=== PATIENT | male | born 1945 | race African-American/Black ===

== ENCOUNTER 2024-05-09 10:31 | Observation (INO) ==
[2024-05-09 11:24] LABS: Basophils%(Percent) Auto 0.7 (0.0-1.3); Eosinophils#(Absolute)Auto 0.1 (0.0-0.3); Eosinophils%(Percent) Auto 2.8 % (0.0-4.0); Granulocytes#(Absolute)- Auto 3.1 (2.0-6.2); Mean Corpuscular Volume 83.6 fl (81.9-96.5); Monocytes #(Absolute)- Auto 0.5 (0.2-0.8); Monocytes %(Percent)- Auto 12.2 % (4.5-10.7); Platelet Count 178 K/uL (142-355); White Blood Count 4.5 K/uL (3.7-9.6)
--- NOTE | 2024-05-09 11:35 | Emergency Department Note ---
HPI - Fall General Chief Complaint: Fall Stated Complaint: fell Time Seen by Provider: 05/09/24 10:41 Source: patient Mode of arrival: walk-in Limitations: no limitations History of Present Illness MD complaint: Reports fall Onset (ago): day(s) (2) Fall from: Reports standing Fall witnessed: Reports no Place fall occurred: Reports home Loss of consciousness: none Prolonged down time: Reports no Symptoms prior to fall: Reports none Context: Reports tripped/slipped Location of injury: Reports head, face and eyes Severity: moderate Quality: Reports aching and throbbing Associated symptoms (after fall): Reports headache, weakness and other (Wounds to lower legs, bilateral lower extremities are tight and shiny) Related Data Allergies Allergy/AdvReac Type Severity Reaction Status Date / Time No Known Drug Allergies Allergy Verified 05/09/24 10:57 Review of Systems Status of ROS 10 or more systems reviewed and unremark able except as noted in history and below Constitutional Reports: fatigue; Denies: fever, chills, change in weight, malaise, night sweats or change in sleep pattern Eyes Denies: change in vision, blurry vision, blind spots, light sensitivity, eye discomfort, eye discharge, dry eyes, increased production of tears, floaters, seeing flashes or decreased night vision Ears, nose, mouth, and throat Denies: throat pain, neck pain, throat swelling, difficulty swallowing, hoarseness, mouth pain, swelling of lips/tongue, dry mouth, bad breath, ear pain, ear discharge, change in hearing, tinnitus, vertig o, nasal discharge, nasal congestion, nose bleeds or post nasal drip Cardiovascular Reports: edema, swelling of feet/ankles, shortness of breath with exertion, shortness of breath when lying down and leg pain with exertion; Denies: chest pain, palpitations, lightheadedness or bluish discoloration of hands/feet Respiratory Reports: shortness of breath; Denies: cough, wheezing, stridor, pain on inspiration, change in phlegm color, coughing up blood or chest congestion Gastrointestinal Denies: abdominal pain, nausea, vomiting, coffee grounds in vomit, heartburn, diarrhea, constipation, bloating, belching, excessive passing of gas, difficulty swallowing, feeling full early, change in bowel habits, painful bowel movements, rectal pain, rectal swelling, rectal itching, change in stool character, blood in stool, mucus in stool, white/light colored stool or fatty stool Genitourinary Denies: painful urination, urinary frequency, urinary urgency, blood in urine, genital pain, genital lesion, penile discharge, testicular pain, testicular mass, scrotal swelling, difficulty urinating, nighttime urination, change in urine stream, decreased urine ouput, difficulty starting urination, urinary hesitancy, urinary dribbling, difficulty with ejactulations, painful ejaculations, blood in semen, change in libido or difficulty impregnating Musculoskeletal Reports: back pain, extremity pain and extremity swelling; Denies: neck pain, joint pain, limited range of motion, joint swelling, muscle cramps, muscle weakness or loss of height Integumentary/Breast Denies: rash, itching, redness, skin pain, skin tenderness, skin swelling, sores, new lesion, changing lesion, non-healing lesion, changes in skin color, jaundice, stretch trevino, acne, nail changes, change in hair, breast pain, breast swelling, nipple discharge, breast mass, breast skin changes or change in breast shape Neurological Reports: weakness in extremities; Denies: headache, numbness in extremities, lack of coordination, dizziness, vertigo, confusion, behavioral changes, slurred speech, difficulty communicating thoughts, seizure-like activity or involuntary movements Psychiatric Reports: anxiety; Denies: mood swings, panic attacks, change in sleep pattern, hopelessness, loss of interest, irritability, paranoia, memory loss, difficulty concentrating, visual hallucinations, auditory hallucinations, tactile hallucinations, suicidal ideation or homicidal ideation Endocrine Reports: fatigue; Denies: excessive urination, excessive thirst, cold intolerance, excessive sweating, flushing, heat intolerance, deepening of the voice, change in body appearance or change in libido Hematologic/Lymphatic Denies: easy bruising, easy bleeding or enlarged lymph nodes Allergic/Immunologic Denies: hives, throat swelling, tongue swelling, facial swelling, wheezing, itchy eyes, seasonal allergies or food intolerance [facility] Medical History Diabetes HLD (hyperlipidemia) Coronary artery disease Surgical History History of back surgery Hx of bilateral hip replacements H/O heart artery stent Social History (System 12/28/23 @ 16:03 by Vidhi Chen [facility]) Smoking status: never smoker Problems where you live: no known problems Feel stressed/tense/nervous/anxious/difficulty sleeping: to some extent Life stressor details: Current medical condition. Due to disability, difficulty making decisions: No Exam Constitutional: normal general appearance, distress noted (moderate), average body habitus, limitations noted (physical limitations) (Patient is weak and has frequent falls) and alert Vital Signs - 24 hr 05/09/24 10:53 05/09/24 11:30 05/09/24 12:30 Temperature 97.8 F Pulse Rate 77 68 64 Respiratory Rate 18 18 16 Blood Pressure 110/54 101/53 104/59 Pulse Oximetry 98 98 97 Oxygen Delivery Me thod Room Air Room Air Room Air 05/09/24 13:30 05/09/24 14:30 Temperature Pulse Rate 61 68 Respiratory Rate 16 17 Blood Pressure 106/55 103/61 Pulse Oximetry 97 97 Oxygen Delivery Me thod Room Air Room Air HENMT: normocephalic, head/scalp traumatic (Patient has a proximately 2 cm laceration to the left eyebrow that has seal) (tenderness), (contusion) and (laceration), hearing grossly normal bilaterally, external ears normal, EACs normal, TMs normal bilaterally, nasal mucous membranes normal, external nose normal, oral mucous membranes normal, oropharynx normal, dentition normal and gingiva normal Patient has a 2 cm laceration to left eyebrow area that has sealed on its own and is not able to be sutured at this time, There is no noted deformity of the nasal area; however, there is noted tenderness on palpation. Eyes: PERRL, EOMs intact bilaterally, conjunctivae normal, no scleral icterus, no papilledema, normal visual drew by confrontation, alignment normal, periorbital findings normal and no nystagmus Neck/C-Spine: visual inspection normal, trachea midline, cervical spine nontender, cervical full ROM noted and supple Lymph: no lymphadenopathy noted and no lymphedema noted Chest: inspection of chest normal, palpation of chest normal, inspection of breast(s) abnormal and palpation of breast(s) abnormal Respiratory: breath sounds equal bilaterally, normal respiratory effort, clear to auscultation bilaterally, no wheezes, no rales, no retractions and no use of accessory muscles Cardiovascular: normal heart rate noted, regular rhythm noted, no gallop, no r ub, no murmur, no JVD, no clicks, peripheral pulses 2+ throughout and no additional abnormal heart sounds Gastrointestinal: abdomen normal to inspection, abdomen soft to palpation, nontender to palpation, nondistended, normoactive bowel sounds, no hepatosplenomegaly, no masses, no pulsatile mass, no ascites and normal rectal exam (deferred) Genitourinary: no CVA tenderness, bladder normal to palpation, penis abnormal (deferred), uncircumcised, testes abnormal, meatus abnormal (deferred), scrotum abnormal (deferred) and inguinal lymphadenopathy noted Back/Pelvis: spine normal to inspection, no thoracic spine tenderness, no lumbar spine tenderness, thoracic spine ROM normal, lumbar spine ROM normal and no paraspinal muscle tenderness noted Extremities: normal to inspection, normal to palpation, tenderness noted, full ROM, no joint enlargement and no deformity Patient's lower extremities are tight and shiny to palpation with several noted skin tear open areas that are reported to be draining fluid and that the patient had to have wound care for the last time he developed this type of wound. Patient does report increased pain on palpation. 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 Feel stressed/tense/nervous/anxious/difficulty sleeping: to some extent Life stressor details: Current medical condition. Skin: skin color normal, no rash, no lesions, no ecchymosis noted, no wounds, no lacerations, skin turgor normal, no jaundice, no petechiae, no mottling, nails normal and no alopecia Course Course Hospital Course: 79-year-old male that presented to ER with complaint of bilateral lower leg edema with small wounds, left-sided periorbital laceration is 2 cm's in length, and recent falls has been evaluated by physical exam, CBC, CMP, BNP, troponin, EKG, plain film chest x-ray, CT of the brain without contrast, and CT of the facial bones without contrast results as noted in charting. Patient has been found to have peripheral edema with BNP elevation, Hypoalbuminemia, acute on chronic renal failure, and leg ulceration. Patient will be admitted to the [facility] floor for diuresis, albumin infusion, and ongoing assessment of renal function. Patient expected length of stay is equal to or less than 2 midnights with disposition home. Patient and family agree with treatment plan. Vital Signs Vital signs: Vital Signs Temperature 97.8 F 05/09/24 10:53 Pulse Rate 77 05/09/24 10:53 Respiratory Rate 18 05/09/24 10:53 Blood Pressure 110/54 05/09/24 10:53 Pulse Oximetry 98 05/09/24 10:53 Oxygen Delivery Method Room Air 05/09/24 10:53 Temperature 97.8 F 05/09/24 10:53 Pulse Rate 68 05/09/24 14:30 Respiratory Rate 17 05/09/24 14:30 Blood Pressure 103/61 05/09/24 14:30 Pulse Oximetry 97 05/09/24 14:30 Oxygen Delivery Method Room Air 05/09/24 14:30 MDM - Fall MDM Narrative Medical decision making narrative: Medical decision making this patient about physical exam, CBC, CMP, troponin, BNP, urinalysis, EKG, and plain film chest x-ray as well as CT of the maxillofacial bones and the brain without contrast. Differential Diagnosis Differential diagnosis: Likely syncope, concussion without loss of consciousness and other (Orbital fracture, laceration, nasal fracture, peripheral edema, CKD, CHF exacerbation) Medical Records Attestation: I reviewed the patient's medical records. Lab Data Attestation: I reviewed the patient's lab results. Labs: Lab Results 05/09/24 Range/Units 11:15 WBC 4.5 (3.7-9.6) K/uL RBC 4.4 (4.40-5.80) M/uL Hgb 11.5 L (14.0-17.4) gm/dL Hct 37.0 L (41.3-50.1) % MCV 83.6 (81.9-96.5) fl MCH 26.1 L (27.6-33.7) pg MCHC 31.2 L (33.0-35.7) g/dl RDW 17.8 H (11.0-14.8) % Plt Count 178 (142-355) K/uL MPV 7.9 (6.0-10.4) fl Gran % 68.0 (49.1-73.1) % Lymph % (Auto) 16.3 L (17.6-39.05) % [place] % (Auto) 12.2 H (4.5-10.7) % Eos % (Auto) 2.8 (0.0-4.0) % Baso % (Auto) 0.7 (0.0-1.3) Lymph # (Auto) 0.7 L (0.8-2.9) [place] # (Auto) 0.5 (0.2-0.8) Eos # (Auto) 0.1 (0.0-0.3) Baso # (Auto) 0.0 (0.0-0.1) Absolute Gran (auto) 3.1 (2.0-6.2) Sodium 144 (136-145) mmol/L Potassium 4.4 (3.6-5.2) mmol/L Chloride 107.0 (98-107) mmol/L Carbon Dioxide 31 (21-32) mmol/L Anion Gap 6.0 (4-14) mEq/L BUN 41 H (7-18) mg/dL Creatinine 1.8 H (0.6-1.3) mg/dL Estimated GFR 37.4 (>59.9) Glucose 113 H (70-110) mg/dL Calcium 8.3 L (8.5-10.1) mg/dL Total Bilirubin 0.79 (0.0-1.0) mg/dL AST 33 (15-37) U/L ALT 40 (30-65) U/L Alkaline Phosphatase 104 (50-136) U/L B-Natriuretic Peptide 614.0 H (0-100) pg/mL Total Protein 6.3 L (6.4-8.2) g/dL Albumin 2.9 L (3.4-5.0) g/dL Imaging Data Imaging ordered: Chest x-ray, CT scan - head and other (CT scan of face bones) Attestation: I have reviewed the pertinent imaging results. Radiologist's impression: EXAM: XR CHEST 1V HISTORY: dyspneadyspnea; COMPARISON: March 07, 2022 FINDINGS: The trachea is midline. The cardiac silhouette is mildly enlarged. The lungs are clear without focal infiltrate or effusion. The bony thorax is unremarkable. IMPRESSION: No acute cardiopulmonary disease. THIS IS AN ELECTRONICALLY VERIFIED FINAL REPORT 05/09/2024 1:51 PM - Electronically signed by Antonia Weber MD EXAM: CT head without contrast HISTORY: Fall, head injury TECHNIQUE: Axial noncontrast images with coronal and sagittal reformats. Dose reduction procedures were used with mA/kv adjusted for body size. COMPARISON: 11/02/2023 FINDINGS: The ventricles are normal in size shape and position. There is mild cortical atrophy present likely age related. There are no focal areas of abnormal attenuation to suggest recent or remote CVA, hemorrhage, contusion, mass lesion, or extra-axial fluid collection. Visualized sinuses are clear. The calvarium is intact. Redemonstrated are multiple partially calcified soft tissue masses within the right orbit demonstrating some mass effect on the extraocular musculature and optic nerve and contributing to proptosis. These findings were present on prior examinations 09/05/2023 and 11/02/2023 and do not appear to have significantly progressed. Recommend careful historical correlation and MRI of the orbits and ophthalmological consultation if not previously obtained. IMPRESSION: No acute intracranial abnormality identified Mild cortical atrophy likely age-related Multiple abnormal and some partially calcified right retro-orbital soft tissue masses contributing to mild proptosis. By history this has been present since 2017. Close historical correlation is recommended. If this finding has not been evaluated, MRI with and without contrast would be of further diagnostic value as would ophthalmology consultation. THIS IS AN ELECTRONICALLY VERIFIED FINAL REPORT 05/09/2024 11:49 AM - Electronically signed by Paul Asif MD EXAMINATION: CT FACIAL BONES WO CON HISTORY: fallfall; . COMPARISON STUDY: CT brain 09/04/2022 05/09/2024. TECHNIQUE: Multiple thin section axial images were obtained through the facial bones without IV administration of contrast. Coronal reformatted images were obtained. The above CT scan was done with automated exposure control and the mA and kV was adjusted to obtain quality images according to patient size. FINDINGS: Nondisplaced nondepressed fracture of the right nasal bone.. Sinuses demonstrate chronic right maxillary sinusitis.. Orbits are intact. Surroundings soft tissues are unremarkable. Globes and retroorbital structures are intact. Zygomas, TMJs and mandible are intact. No osteolytic or osteoblastic lesions are noted. 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 This is previously described as 2 separate lesions. Differential diagnosis would include lymphoma, sarcoid, pseudotumor or neurogenic tumors. Consider ophthalmology evaluation. Globes and retro-orbital structures are otherwise intact. There is adjacent calcification. Karla bullosa within the middle turbinates bilaterally. IMPRESSION: Nondisplaced nondepressed posttraumatic closed fracture of the right nasal bone. Excessive motion and streak artifact. 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 Differential diagnosis would include lymphoma, sarcoid, orbital pseudotumor or neurogenic tumors. Consider ophthalmologic evaluation.. THIS IS AN ELECTRONICALLY VERIFIED FINAL REPORT 05/09/2024 11:54 AM - Electronically signed by Tim Huff MD ECG Data Attestation: I have reviewed the pertinent ECG results. Interpretation: Sinus rhythm rate 75 Normal P axis PVCs Anterior infarct, old RR 800 NM 193 P axis 49 QRS 126 T 17 Discharge Plan Discharge Patient Disposition: Admitted As Observation Condition: Stable Chief Complaint: Fall Clinical Impression: Acute on chronic kidney failure, Hypoalbuminemia, Laceration, Edema, peripheral Print Language: Maltese Referrals: Praveena Limon NP [Primary Care Provider] - Time of Disposition: 13:10
[2024-05-09 11:37] LABS: Potassium 4.4 mmol/L (3.6-5.2)
[2024-05-09] MEDS ORDERED: ACETAMINOPHEN 1000 MG/100 ML 1,000 MG/100 ML IV.SOLN IV PRN (16:00)
[2024-05-09] MEDS ORDERED: ONDANSETRON HCL/PF 4 MG/2 ML VIAL INJ PRN (16:00)
[2024-05-09] MEDS ORDERED: bisacodyL 10 MG SUPP.RECT PR PRN (16:00)
[2024-05-09] MEDS ORDERED: MAGNESIUM, ALUMINUM HYDROXIDE 30 ML ORAL.SUSP PO PRN (16:00)
[2024-05-09] MEDS ORDERED: MORPHINE SULFATE 2 MG/ML CARTRIDGE IV PRN (16:00)
[2024-05-09] MEDS ORDERED: KETOROLAC 30 MG/ML INJ VIAL IVP PRN (16:00)
[2024-05-09] MEDS: 0.9 % SODIUM CHLORIDE 1000 ML 1,000 ML IV SCH (16:07)
[2024-05-09] MEDS: ALBUMIN HUMAN 25% 100 ML IV SCH (16:07)
--- NOTE | 2024-05-09 16:47 | History & Physical Report ---
H&P: HPI History of Present Illness Chief complaint: Acute chronic kidney injury, hypoalbuminemia Narrative: 79-year-old male that presented to ER with complaint of bilateral lower leg edema with small wounds, left-sided periorbital laceration is 2 cm's in length, and recent falls has been evaluated by physical exam, CBC, CMP, BNP, troponin, EKG, plain film chest x-ray, CT of the brain without contrast, and CT of the facial bones without contrast results as noted in charting. Patient has been found to have peripheral edema with BNP elevation, Hypoalbuminemia, acute on chronic renal failure, and leg ulceration. Patient will be admitted to the [facility] floor for diuresis, albumin infusion, and ongoing assessment of renal function. Review of Systems Status of ROS 10 or more systems reviewed and unremark able except as noted in history and below Constitutional Reports: fatigue; Denies: fever, chills, change in weight, malaise, night sweats or change in sleep pattern Eyes Denies: change in vision, blurry vision, blind spots, light sensitivity, eye discomfort, eye discharge, dry eyes, increased production of tears, floaters, seeing flashes or decreased night vision Ears, nose, mouth, and throat Denies: throat pain, neck pain, throat swelling, difficulty swallowing, hoarseness, mouth pain, swelling of lips/tongue, dry mouth, bad breath, ear pain, ear discharge, change in hearing, tinnitus, vertigo, nasal discharge, nasal congestion, nose bleeds or post nasal drip Cardiovascular Reports: edema, swelling of feet/ankles, shortness of breath with exertion, shortness of breath when lying down and leg pain with exertion; Denies: chest pain, palpitations, lightheadedness or bluish discoloration of hands/feet Respiratory Reports: shortness of breath; Denies: cough, wheezing, stridor, pain on inspiration, change in phlegm color, coughing up blood or chest congestion Gastrointestinal Denies: abdominal pain, nausea, vomiting, coffee grounds in vomit, heartburn, diarrhea, constipation, bloating, belching, excessive passing of gas, difficulty swallowing, feeling full early, change in bowel habits, painful bowel movements, rectal pain, rectal swelling, rectal itching, change in stool character, blood in stool, mucus in stool, white/light colored stool or fatty stool Genitourinary Denies: painful urination, urinary frequency, urinary urgency, blood in urine, genital pain, genital lesion, penile discharge, testicular pain, testicular mass, scrotal swelling, difficulty urinating, nighttime urination, change in urine stream, decreased urine ouput, difficulty starting urination, urinary hesitancy, urinary dribbling, difficulty with ejactulations, painful ejaculations, blood in semen, change in libido or difficulty impregnating Musculoskeletal Reports: back pain, extremity pain and extremity swelling; Denies: neck pain, joint pain, limited range of motion, joint swelling, muscle cramps, muscle weakness or loss of height Integumentary/Breast Denies: rash, itching, redness, skin pain, skin tenderness, skin swelling, sores, new lesion, changing lesion, non-healing lesion, changes in skin color, jaundice, stretch trevino, acne, nail changes, change in hair, breast pain, breast swelling, nipple discharge, breast mass, breast skin changes or change in breast shape Neurological Reports: weakness in extremities; Denies: headache, numbness in extremities, lack of coordination, dizziness, vertigo, confusion, behavioral changes, slurred speech, difficulty communicating thoughts, seizure-like activity or involuntary movements Psychiatric Reports: anxiety; Denies: mood swings, panic attacks, change in sleep pattern, hopelessness, loss of interest, irritability, paranoia, memory loss, difficulty concentrating, visual hallucinations, auditory hallucinations, tactile hallucinations, suicidal ideation or homicidal ideation Endocrine Reports: fatigue; Denies: excessive urination, excessive thirst, cold intolerance, excessive sweating, flushing, heat intolerance, deepening of the voice, change in body appearance or change in libido Hematologic/Lymphatic Denies: easy bruising, easy bleeding or enlarged lymph nodes Allergic/Immunologic Denies: hives, throat swelling, tongue swelling, facial swelling, wheezing, itchy eyes, seasonal allergies or food intolerance PFSH PFS Medical History (Updated 05/09/24 @ 16:44 by BRYANT Hirsch) Diabetes HLD (hyperlipidemia) Coronary artery disease Surgical History History of back surgery Hx of bilateral hip replacements H/O heart artery stent Social History Smoking status: never smoker Problems where you live: no known problems Feel stressed/tense/nervous/anxious/difficulty sleeping: to some extent Life stressor details: Current medical condition. Due to disability, difficulty making decisions: No Meds Home Medications and Allergies Allergies Allergy/AdvReac Type Severity Reaction Status Date / Time No Known Drug Allergies Allergy Verified 05/09/24 10:57 Exam Exam: Patient in stock's position. Constitutional: normal general appearance, distress noted (moderate), average body habitus, limitations noted (physical limitations) (Patient is weak and has frequent falls) and alert Vital Signs - 24 hr 05/09/24 10:53 05/09/24 11:30 05/09/24 12:30 Temperature 97.8 F Pulse Rate 77 68 64 Respiratory Rate 18 18 16 Blood Pressure 110/54 101/53 104/59 Pulse Oximetry 98 98 97 Oxygen Delivery Me thod Room Air Room Air Room Air 05/09/24 13:30 05/09/24 14:30 05/09/24 15:30 Temperature Pulse Rate 61 68 68 Respiratory Rate 16 17 17 Blood Pressure 106/55 103/61 108/55 Pulse Oximetry 97 97 97 Oxygen Delivery Me thod Room Air Room Air Room Air 05/09/24 16:00 Temperature Pulse Rate 66 Respiratory Rate 17 Blood Pressure 104/55 Pulse Oximetry 97 Oxygen Delivery Me thod Room Air HENMT: normocephalic, head/scalp traumatic (Patient has a proximately 2 cm laceration to the left eyebrow that has seal) (tenderness), (contusion) and (laceration), hearing grossly normal bilaterally, external ears normal, EACs normal, TMs normal bilaterally, nasal mucous membranes normal, external nose normal, oral mucous membranes normal, oropharynx normal, dentition normal and gingiva normal Patient has a 2 cm laceration to left eyebrow area that has sealed on its own and is not able to be sutured at this time, There is no noted deformity of the nasal area; however, there is noted tenderness on palpation. Eyes: PERRL, EOMs intact bilaterally, conjunctivae normal, no scleral icterus, no papilledema, normal visual drew by confrontation, fundi normal bilaterally, alignment normal, periorbital findings normal, visual acuity normal and no nystagmus Neck/C-Spine: visual inspection normal, trachea midline, cervical spine nontender, cervical full ROM noted, supple, no meningeal signs, thyroid normal and no carotid bruits Lymph: no lymphadenopathy noted and no lymphedema noted Chest: inspection of chest normal, palpation of chest normal, inspection of breast(s) abnormal and palpation of breast(s) abnormal Respiratory: breath sounds equal bilaterally, normal respiratory effort, clear to auscultation bilaterally, no wheezes, no rales, no retractions, no use of accessory muscles and chest percussion normal Cardiovascular: normal heart rate noted, regular rhythm noted, no gallop, no rub, no murmur, no JVD, no clicks, peripheral pulses 2+ throughout, no bruits noted and no additional abnormal heart sounds Gastrointestinal: abdomen normal to inspection, abdomen soft to palpation, nontender to palpation, nontender to percussion, nondistended, normoactive bowel sounds, no hepatosplenomegaly, no masses, no pulsatile mass, no ascites, no hernia and normal rectal exam (deferred) Genitourinary: no CVA tenderness, bladder normal to palpation, external appearance normal, penis abnormal (deferred), uncircumcised, testes abnormal, meatus abnormal (deferred), scrotum abnormal (deferred) and inguinal lymphadenopathy noted Back/Pelvis: spine normal to inspection, no thoracic spine tenderness, no lumbar spine tenderness, thoracic spine ROM normal, lumbar spine ROM normal, no paraspinal muscle tenderness noted and straight leg raise negative bilaterally Extremities: normal to inspection, normal to palpation, tenderness noted, full ROM, no joint enlargement and no deformity Patient's lower extremities are tight and shiny to palpation with several noted skin tear open areas that are reported to be draining fluid and that the patient had to have wound care for the last time he developed this type of wound. Patient does report increased pain on palpation. Neurology: edge trimmer mechanic II-XII intact, no movement abnormality noted, no focal motor deficit noted, no sensory deficits noted, deep tendon reflexes 2+ bilaterally, gait abnormality noted (unable to access), speech normal, coordination normal, no pronator drift noted, no fasciculations noted and GCS normal Psychiatry: Mental Status Exam documented within this Exam's Psych section mental status grossly normal, oriented x3, thought process normal, cooperative, affect normal, psychomotor activity normal and memory normal Patient is alert and oriented to his normal state, family reports patient has had several falls related to unsteady gait and weakness. Skin: skin color normal, no rash, no lesions, no ecchymosis noted, no wounds, no lacerations, skin turgor normal, no jaundice, no petechiae, no mottling, nails normal and no alopecia Assessment and Plan Assessment and Plan (1) Fall: Qualifiers: Encounter type: initial encounter Qualified Code(s): W19.XXXA - Unspecified fall, initial encounter Code(s): W19.XXXA - Unspecified fall, initial encounter (2) Muscle weakness (generalized): Code(s): M62.81 - Muscle weakness (generalized) (3) Headache: Qualifiers: Headache type: post-traumatic Headache chronicity pattern: acute headache Intractability: intractable Qualified Code(s): G44.311 - Acute post- traumatic headache, intractable Code(s): R51.9 - Headache, unspecified (4) Hypoalbuminemia: Code(s): E88.09 - Other disorders of plasma-protein metabolism, not elsewhere classified (5) SOB (shortness of breath): Code(s): R06.02 - Shortness of breath (6) Back pain: Qualifiers: Back pain location: back pain in unspecified location Chronicity: acute Back pain laterality: bilateral Qualified Code(s): M54.9 - Dorsalgia, unspecified Code(s): M54.9 - Dorsalgia, unspecified (7) Lower extremity pain, bilateral: Code(s): M79.604 - Pain in right leg; M79.605 - Pain in left leg (8) Lower extremity edema: Code(s): R60.0 - Localized edema (9) Anemia: Qualifiers: Anemia type: unspecified type Qualified Code(s): D64.9 - Anemia, unspecified Code(s): D64.9 - Anemia, unspecified (10) Hypocalcemia: Code(s): E83.51 - Hypocalcemia (11) Hypoproteinemia: Code(s): E77.8 - Other disorders of glycoprotein metabolism (12) [id number]-[id number] kidney injury: Qualifiers: Acute renal failure type: unspecified Chronic kidney disease stage: unspecified stage Qualified Code(s): N17.9 - Acute kidney failure, unspecified; N18.9 - Chronic kidney disease, unspecified Code(s): N17.9 - Acute kidney failure, unspecified; N18.9 - Chronic kidney disease, unspecified (13) Anxiety: Code(s): F41.9 - Anxiety disorder, unspecified (14) Diabetes: Qualifiers: Diabetes mellitus type: type 2 Diabetes mellitus care home insulin use: unspecified care home insulin use status Diabetes mellitus complication status: with hyperglycemia Qualified Code(s): E11.65 - Type 2 diabetes mellitus with hyperglycemia Code(s): E11.9 - Type 2 diabetes mellitus without complications Plan Sodium Chloride 1,000 mls @ 50 mls/hr IV CONT Albumin 100 mls @ 60 mls/hr IV Q2H Bumetanide 1 mg IVP BID Magnesium Hydroxide 30 ml PO DAILY PRN Bisacodyl 10 mg TX DAILY PRN Ketorolac Tromethamine 15 mg IVP Q6H PRN Morphine Sulfate 2 mg IV Q4H PRN Ondansetron Hcl 4 mg INJ Q6H PRN Acetaminophen 1,000 mg in 100 mls @ 400 mls/hr IV Q6H PRN Results Labs Labs: CBC 05/09/24 11:15 WBC 4.5 RBC 4.4 Hgb 11.5 L Hct 37.0 L MCV 83.6 MCH 26.1 L MCHC 31.2 L RDW 17.8 H Plt Count 178 MPV 7.9 Gran % 68.0 Lymph % (Auto) 16.3 L Hyde % (Auto) 12.2 H Eos % (Auto) 2.8 Baso % (Auto) 0.7 Lymph # (Auto) 0.7 L Hyde # (Auto) 0.5 Eos # (Auto) 0.1 Baso # (Auto) 0.0 Absolute Gran (auto) 3.1 Sodium 144 Potassium 4.4 Chloride 107.0 Carbon Dioxide 31 Anion Gap 6.0 BUN 41 H Creatinine 1.8 H Estimated GFR 37.4 Glucose 113 H Calcium 8.3 L Total Bilirubin 0.79 AST 33 ALT 40 Alkaline Phosphatase 104 B-Natriuretic Peptide 614.0 H Total Protein 6.3 L Albumin 2.9 L BMP 05/09/24 11:15 WBC 4.5 RBC 4.4 Hgb 11.5 L Hct 37.0 L MCV 83.6 MCH 26.1 L MCHC 31.2 L RDW 17.8 H Plt Count 178 MPV 7.9 Gran % 68.0 Lymph % (Auto) 16.3 L Hyde % (Auto) 12.2 H Eos % (Auto) 2.8 Baso % (Auto) 0.7 Lymph # (Auto) 0.7 L Hyde # (Auto) 0.5 Eos # (Auto) 0.1 Baso # (Auto) 0.0 Absolute Gran (auto) 3.1 Sodium 144 Potassium 4.4 Chloride 107.0 Carbon Dioxide 31 Anion Gap 6.0 BUN 41 H Creatinine 1.8 H Estimated GFR 37.4 Glucose 113 H Calcium 8.3 L Total Bilirubin 0.79 AST 33 ALT 40 Alkaline Phosphatase 104 B-Natriuretic Peptide 614.0 H Total Protein 6.3 L Albumin 2.9 L Cardiac Enzymes 05/09/24 11:15 WBC 4.5 RBC 4.4 Hgb 11.5 L Hct 37.0 L MCV 83.6 MCH 26.1 L MCHC 31.2 L RDW 17.8 H Plt Count 178 MPV 7.9 Gran % 68.0 Lymph % (Auto) 16.3 L Hyde % (Auto) 12.2 H Eos % (Auto) 2.8 Baso % (Auto) 0.7 Lymph # (Auto) 0.7 L Hyde # (Auto) 0.5 Eos # (Auto) 0.1 Baso # (Auto) 0.0 Absolute Gran (auto) 3.1 Sodium 144 Potassium 4.4 Chloride 107.0 Carbon Dioxide 31 Anion Gap 6.0 BUN 41 H Creatinine 1.8 H Estimated GFR 37.4 Glucose 113 H Calcium 8.3 L Total Bilirubin 0.79 AST 33 ALT 40 Alkaline Phosphatase 104 B-Natriuretic Peptide 614.0 H Total Protein 6.3 L Albumin 2.9 L Liver Function 05/09/24 11:15 WBC 4.5 RBC 4.4 Hgb 11.5 L Hct 37.0 L MCV 83.6 MCH 26.1 L MCHC 31.2 L RDW 17.8 H Plt Count 178 MPV 7.9 Gran % 68.0 Lymph % (Auto) 16.3 L Hyde % (Auto) 12.2 H Eos % (Auto) 2.8 Baso % (Auto) 0.7 Lymph # (Auto) 0.7 L Hyde # (Auto) 0.5 Eos # (Auto) 0.1 Baso # (Auto) 0.0 Absolute Gran (auto) 3.1 Sodium 144 Potassium 4.4 Chloride 107.0 Carbon Dioxide 31 Anion Gap 6.0 BUN 41 H Creatinine 1.8 H Estimated GFR 37.4 Glucose 113 H Calcium 8.3 L Total Bilirubin 0.79 AST 33 ALT 40 Alkaline Phosphatase 104 B-Natriuretic Peptide 614.0 H Total Protein 6.3 L Albumin 2.9 L Urine 05/09/24 11:15 WBC 4.5 RBC 4.4 Hgb 11.5 L Hct 37.0 L MCV 83.6 MCH 26.1 L MCHC 31.2 L RDW 17.8 H Plt Count 178 MPV 7.9 Gran % 68.0 Lymph % (Auto) 16.3 L Hyde % (Auto) 12.2 H Eos % (Auto) 2.8 Baso % (Auto) 0.7 Lymph # (Auto) 0.7 L Hyde # (Auto) 0.5 Eos # (Auto) 0.1 Baso # (Auto) 0.0 Absolute Gran (auto) 3.1 Sodium 144 Potassium 4.4 Chloride 107.0 Carbon Dioxide 31 Anion Gap 6.0 BUN 41 H Creatinine 1.8 H Estimated GFR 37.4 Glucose 113 H Calcium 8.3 L Total Bilirubin 0.79 AST 33 ALT 40 Alkaline Phosphatase 104 B-Natriuretic Peptide 614.0 H Total Protein 6.3 L Albumin 2.9 L Imaging Imaging ordered: Chest x-ray, CT scan - head and other (Face CT; Thyroid US) Radiologist's impression: XR CHEST 1V Date of Service: 05/09/24 HISTORY: dyspnea; COMPARISON: March 07, 2022 FINDINGS: The trachea is midline. The cardiac silhouette is mildly enlarged. The lungs are clear without focal infiltrate or effusion. The bony thorax is unremarkable. IMPRESSION: No acute cardiopulmonary disease. CT head without contrast Date of Service: 05/09/24 HISTORY: Fall, head injury TECHNIQUE: Axial noncontrast images with coronal and sagittal reformats. Dose reduction procedures were used with mA/kv adjusted for body size. COMPARISON: 11/02/2023 FINDINGS: The ventricles are normal in size shape and position. There is mild cortical atrophy present likely age related. There are no focal areas of abnormal attenuation to suggest recent or remote CVA, hemorrhage, contusion, mass lesion, or extra-axial fluid collection. Visualized sinuses are clear. The calvarium is intact. Redemonstrated are multiple partially calcified soft tissue masses within the right orbit demonstrating some mass effect on the extraocular musculature and optic nerve and contributing to proptosis. These findings were present on prior examinations 09/05/2023 and 11/02/2023 and do not appear to have significantly progressed. Recommend careful historical correlation and MRI of the orbits and ophthalmological consultation if not previously obtained. IMPRESSION: No acute intracranial abnormality identified Mild cortical atrophy likely age-related Multiple abnormal and some partially calcified right retro-orbital soft tissue masses contributing to mild proptosis. By history this has been present since 2017. Close historical correlation is recommended. If this finding has not been evaluated, MRI with and without contrast would be of further diagnostic value as would ophthalmology consultation. CT FACIAL BONES WO CON Date of Service: 05/09/24 HISTORY: fall; . COMPARISON STUDY: CT brain 09/04/2022 05/09/2024. TECHNIQUE: Multiple thin section axial images were obtained through the facial bones without IV administration of contrast. Coronal reformatted images were ob tained. The above CT scan was done with automated exposure control and the mA and kV was adjusted to obtain quality images according to patient size. FINDINGS: Nondisplaced nondepressed fracture of the right nasal bone.. Sinuses demonstrate chronic right maxillary sinusitis.. Orbits are intact. Surroundings soft tissues are unremarkable. Globes and retroorbital structures are intact. Zygomas, TMJs and mandible are intact. No osteolytic or osteoblastic lesions are noted. 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 This is previously described as 2 separate lesions. Differential diagnosis would include lymphoma, sarcoid, pseudotumor or neurogenic tumors. Consider ophthalmology evaluation. Globes and retro-orbital structures are otherwise intact. There is adjacent calcification. Karla bullosa within the middle turbinates bilaterally. IMPRESSION: Nondisplaced nondepressed posttraumatic closed fracture of the right nasal bone. Excessive motion and streak artifact. 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 Differential diagnosis would include lymphoma, sarcoid, orbital pseudotumor or neurogenic tumors. Consider ophthalmologic evaluation.. US THYROID Date of Service: 05/09/24 HISTORY: elevated tshelevated tsh; COMPARISON: Chest CT 10/24/2023 TECHNIQUE: 54 images made by the postmaster. Mcgraw scale and color-flow images of the thyroid were obtained. FINDINGS: Right lobe of the thyroid measures 57 x 16 x 19 mm. Left lobe of the thyroid measures 58 x 17 x 22 mm. Isthmus measures 4 mm. Thyroid volume is about 20 mL. The thyroid is normal in size. Upper limit normal volume for men is 9-25 mL. The contour is smooth. Normal blood flow is demonstrated by color imaging. The echogenicity is uniform. 1 small nodule measures about 3 mm in the right lobe. This does not meet size criteria for further evaluation. The technologist did not report any suspicious surrounding lymphadenopathy. IMPRESSION: 1. Small right thyroid nodule 2. No suspicious findings
[2024-05-09] MEDS: BUMETANIDE 1 MG/4 ML VIAL IVP SCH (21:01)
[2024-05-10 05:20] LABS: Basophils%(Percent) Auto 1.1 (0.0-1.3); Eosinophils#(Absolute)Auto 0.1 (0.0-0.3); Eosinophils%(Percent) Auto 3.2 % (0.0-4.0); Granulocytes % - Auto 65.1 % (49.1-73.1); Granulocytes#(Absolute)- Auto 2.8 (2.0-6.2); Hematocrit 34.5 % (41.3-50.1); Mean Corpuscular Volume 82.5 fl (81.9-96.5); Monocytes #(Absolute)- Auto 0.5 (0.2-0.8); Monocytes %(Percent)- Auto 11.6 % (4.5-10.7); Platelet Count 179 K/uL (142-355); White Blood Count 4.4 K/uL (3.7-9.6)
[2024-05-10 06:09] LABS: Potassium 3.6 mmol/L (3.6-5.2)
[2024-05-10] MEDS: PANTOPRAZOLE SODIUM 40 MG TABLET.DR PO SCH (09:53)
[2024-05-10] MEDS: MAGNESIUM OXIDE 400 MG TABLET PO ONE (09:55)
[2024-05-10] MEDS: MAGNESIUM OXIDE 400 MG TABLET ONE (09:56)
[2024-05-10 10:39] LABS: Urine Appearance CLEAR (CLEAR); Urine Blood NEGATIVE (NEG - TRACE); Urine Color YELLOW (STRAW/YELL.); Urine Urobilinogen Normal (NORMAL)
--- NOTE | 2024-05-10 16:12 | Progress Note ---
Progress Note: Subjective Subjective Interval history: Day two of hospital stay, patient reports he did not sleep well last night, as he did not have his Xanax as he normally does. Patient had a previous fall with a laceration above left eyebrow and a nasal fracture. Thyroid US performed on 05/09/24 Impression reflects the following: "1: Small right thyroid nodule, 2: No suspicious findings." Lab work reflects the following: elevated BUN & Creatinine, hypocalcemia 7.8, hypomagnesemia 1.6, elevated BN-Peptide 452.0, hypoproteinemia 5.9, and hypoalbuminemia 2.8. Physical Therapy and Occupational Therapy to evaluate and treat as needed. Exam Exam: Patient in stock's position. Constitutional: abnormal general appearance (disheveled) and (chronically ill), distress noted (mild), abnormal body habitus (overweight), limitations noted (physical limitations) (Patient is weak and has frequent falls) and alert Vital Signs - 24 hr 05/09/24 15:44 05/09/24 16:00 05/09/24 16:39 Temperature 98.3 F Pulse Rate 66 66 Pulse Rate [Left] 83 Respiratory Rate 20 17 17 Blood Pressure 104/55 104/55 Blood Pressure [Le ft Arm] 133/61 Pulse Oximetry 96 97 97 Oxygen Delivery Me od Room Air Room Air 05/09/24 19:59 05/09/24 21:01 05/09/24 23:39 Temperature 97.6 F 98.2 F Pulse Rate Pulse Rate [Left] 86 86 Respiratory Rate 17 16 Blood Pressure 106/58 Blood Pressure [Le ft Arm] 106/58 104/63 Pulse Oximetry 97 95 [facility] 05/09/24 23:52 05/10/24 03:30 05/10/24 08:00 Temperature 97.9 F 98.3 F Pulse Rate Pulse Rate [Left] 64 91 H Respiratory Rate 18 19 Blood Pressure 104/63 Blood Pressure [Le ft Arm] 98/49 121/58 Pulse Oximetry 95 98 [facility] Room Air 05/10/24 09:53 05/10/24 10:59 05/10/24 12:00 Temperature 99.3 F Pulse Rate Pulse Rate [Left] 95 H Respiratory Rate 19 Blood Pressure 121/58 110/64 Blood Pressure [Le ft Arm] 124/65 Pulse Oximetry 97 Oxygen Delivery Me thod Room Air HENMT: normocephalic, head/scalp traumatic (Patient has a proximately 2 cm laceration to the left eyebrow that has seal) (tenderness), (contusion) and (laceration), hearing grossly normal bilaterally, external ears normal, EACs normal, TMs normal bilaterally, nasal mucous membranes normal, external nose normal, oral mucous membranes normal, oropharynx normal, dentition normal and gingiva normal Patient has a 2 cm laceration to left eyebrow area that has sealed on its own and is not able to be sutured at this time, There is no noted deformity of the nasal area; however, there is noted tenderness on palpation. Eyes: PERRL, EOMs intact bilaterally, conjunctivae normal, no scleral icterus, no papilledema, normal visual drew by confrontation, fundi normal bilaterally, alignment normal, periorbital findings normal, visual acuity normal and no nystagmus Neck/C-Spine: visual inspection normal, trachea midline, cervical spine nontender, cervical full ROM noted, supple, no meningeal signs, thyroid normal and no carotid bruits Lymph: no lymphadenopathy noted and no lymphedema noted Chest: inspection of chest normal, palpation of chest normal, inspection of breast(s) abnormal and palpation of breast(s) abnormal Respiratory: breath sounds equal bilaterally, normal respiratory effort, clear to auscultation bilaterally, no wheezes, no rales, no retractions, no use of accessory muscles and chest percussion normal Cardiovascular: normal heart rate noted, regular rhythm noted, no gallop, no rub, no murmur, no JVD, no clicks, peripheral pulses 2+ throughout, no bruits noted and no additional abnormal heart sounds Gastrointestinal: abdomen normal to inspection, abdomen soft to palpation, nontender to palpation, nontender to percussion, nondistended, normoactive bowel sounds, no hepatosplenomegaly, no masses, no pulsatile mass, no ascites, no hernia and normal rectal exam (deferred) Genitourinary: no CVA tenderness, bladder normal to palpation, external appearance normal, penis normal, testes normal, scrotum normal (deferred) and no inguinal lymphadenopathy Back/Pelvis: spine normal to inspection, no thoracic spine tenderness, no lumbar spine tenderness, thoracic spine ROM normal, lumbar spine ROM normal, no paraspinal muscle tenderness noted and straight leg raise negative bilaterally Extremities: normal to inspection, normal to palpation, tenderness noted, full ROM, no joint enlargement and no deformity Patient's lower extremities are tight and shiny to palpation with several noted skin tear open areas that are reported to be draining fluid and that the patient had to have wound care for the last time he developed this type of wound. Patient does report increased pain on palpation. Neurology: quality assurance monitor final II-XII intact, no movement abnormality noted, no focal motor deficit noted, sensory deficit noted, deep tendon reflexes 2+ bilaterally, gait abnormality noted (unable to access), speech normal, coordination abnormality noted, no pronator drift noted, no fasciculations noted and GCS normal Psychiatry: Mental Status Exam documented within this Exam's Psych section mental status grossly normal, oriented x3, thought process abnormality noted, cooperative, affect normal, psychomotor abnormality noted (restless) and memory normal Patient is alert and oriented to his normal state, family reports patient has had several falls related to unsteady gait and weakness. Feel stressed/tense/nervous/anxious/difficulty sleeping: not at all Skin: skin color normal, no rash, no lesions, no ecchymosis noted, no wounds, no lacerations, skin turgor abnormal Reports (tenting), no jaundice, no pe techiae, no mottling, nails normal and no alopecia Progress Note: Objective Labs Labs: CBC 05/10/24 Range/Units 04:50 WBC 4.4 (3.7-9.6) K/uL RBC 4.2 L (4.40-5.80) M/uL Hgb 11.3 L (14.0-17.4) gm/dL Hct 34.5 L (41.3-50.1) % Plt Count 179 (142-355) K/uL Gran % 65.1 (49.1-73.1) % Lymph % (Auto) 19.0 (17.6-39.05) % [place] % (Auto) 11.6 H (4.5-10.7) % Eos % (Auto) 3.2 (0.0-4.0) % Baso % (Auto) 1.1 (0.0-1.3) Lymph # (Auto) 0.8 (0.8-2.9) [place] # (Auto) 0.5 (0.2-0.8) Eos # (Auto) 0.1 (0.0-0.3) Baso # (Auto) 0.0 (0.0-0.1) Absolute Gran (auto) 2.8 (2.0-6.2) CMP 05/10/24 04:50 Sodium 143 Potassium 3.6 Chloride 106.0 Carbon Dioxide 31 BUN 32 H Creatinine 1.5 H Glucose 121 H Calcium 7.8 L Liver Function 05/10/24 Range/Units 04:50 Total Bilirubin 0.79 (0.0-1.0) mg/dL AST 28 (15-37) U/L ALT 33 (30-65) U/L Alkaline Phosphatase 98 (50-136) U/L Albumin 2.8 L (3.4-5.0) g/dL Urine 05/10/24 09:51 Urine Color Yellow Urine Appearance Clear Ur Specific [place] 1.010 Urine Protein Negative Urine Glucose (UA) 1+ Imaging Chest x-ray: Radiologist's impression: XR CHEST 1V Date of Service: 05/09/24 HISTORY: dyspnea; COMPARISON: March 07, 2022 FINDINGS: The trachea is midline. The cardiac silhouette is mildly enlarged. The lungs are clear without focal infiltrate or effusion. The bony thorax is unremarkable. IMPRESSION: No acute cardiopulmonary disease. CT scan - head: Radiologist's impression: CT head without contrast Date of Service: 05/09/24 HISTORY: Fall, head injury TECHNIQUE: Axial noncontrast images with coronal and sagittal reformats. Dose reduction procedures were used with mA/kv adjusted for body size. COMPARISON: 11/02/2023 FINDINGS: The ventricles are normal in size shape and position. There is mild cortical atrophy present likely age related. There are no focal areas of abnormal attenuation to suggest recent or remote CVA, hemorrhage, contusion, mass lesion, or extra-axial fluid collection. Visualized sinuses are clear. The calvarium is intact. Redemonstrated are multiple partially calcified soft tissue masses within the right orbit demonstrating some mass effect on the extraocular musculature and optic nerve and contributing to proptosis. These findings were present on prior examinations 09/05/2023 and 11/02/2023 and do not appear to have significantly progressed. Recommend careful historical correlation and MRI of the orbits and ophthalmological consultation if not previously obtained. IMPRESSION: No acute intracranial abnormality identified Mild cortical atrophy likely age-related Multiple abnormal and some partially calcified right retro-orbital soft tissue masses contributing to mild proptosis. By history this has been present since 2017. Close historical correlation is recommended. If this finding has not been evaluated, MRI with and without contrast would be of further diagnostic value as would ophthalmology consultation. Face CT: Radiologist's impression: CT FACIAL BONES WO CON Date of Service: 05/09/24 HISTORY: fall; . COMPARISON STUDY: CT brain 09/04/2022 05/09/2024. TECHNIQUE: Multiple thin section axial images were obtained through the facial bones without IV administration of contrast. Coronal reformatted images were obtained. The above CT scan was done with automated exposure control and the mA and kV was adjusted to obtain quality images according to patient size. FINDINGS: Nondisplaced nondepressed fracture of the right nasal bone.. Sinuses demonstrate chronic right maxillary sinusitis.. Orbits are intact. Surroundings soft tissues are unremarkable. Globes and retroorbital structures are intact. Zygomas, TMJs and mandible are intact. No osteolytic or osteoblastic lesions are noted. 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 This is previously described as 2 separate lesions. Differential diagnosis would include lymphoma, sarcoid, pseudotumor or neurogenic tumors. Consider ophthalmology evaluation. Globes and retro-orbital structures are otherwise intact. There is adjacent calcification. Karla bullosa within the middle turbinates bilaterally. IMPRESSION: Nondisplaced nondepressed posttraumatic closed fracture of the right nasal bone. Excessive motion and streak artifact. 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 Differential diagnosis would include lymphoma, sarcoid, orbital pseudotumor or neurogenic tumors. Consider ophthalmologic evaluation.. Thyroid US: Radiologist's impression: US THYROID Date of Service: 05/09/24 HISTORY: elevated tsh; COMPARISON: Chest CT 10/24/2023 TECHNIQUE: 54 images made by the furniture packer. Mcgraw scale and color-flow images of the thyroid were obtained. FINDINGS: Right lobe of the thyroid measures 57 x 16 x 19 mm. Left lobe of the thyroid measures 58 x 17 x 22 mm. Isthmus measures 4 mm. Thyroid volume is about 20 mL. The thyroid is normal in size. Upper limit normal volume for men is 9-25 mL. The contour is smooth. Normal blood flow is demonstrated by color imaging. The echogenicity is uniform. 1 small nodule measures about 3 mm in the right lobe. This does not meet size criteria for further evaluation. The technologist did not report any suspicious surrounding lymphadenopathy. IMPRESSION: 1. Small right thyroid nodule 2. No suspicious findings Progress Note: A&P Assessment and Plan (1) CHF (congestive heart failure): Qualifiers: Heart failure type: combined systolic and diastolic Heart failure chronicity: acute Qualified Code(s): I50.41 - Acute combined systolic (congestive) and diastolic (congestive) heart failure (2) Concussion: Qualifiers: Encounter type: initial encounter Loss of consciousness presence/duration: with LOC of 30 min or less Qualified Code(s): S06.0X1A - Concussion with loss of consciousness of 30 minutes or less, initial encounter (3) Nasal bone fx-closed: Qualifiers: Encounter type: initial encounter Qualified Code(s): S02.2XXA - Fracture of nasal bones, initial encounter for closed fracture (4) Fall: Qualifiers: Encounter type: initial encounter Qualified Code(s): W19.XXXA - Unspecified fall, initial encounter (5) Muscle weakness (generalized): (6) [place] kidney injury: Qualifiers: Acute renal failure type: unspecified Chronic kidney disease stage: unspecified stage Qualified Code(s): N17.9 - Acute kidney failure, unspecified; N18.9 - Chronic kidney disease, unspecified (7) Diabetes: Qualifiers: Diabetes mellitus complication status: with hyperglycemia Diabetes mellitus usp insulin use: unspecified buttermaker helper insulin use status Diabetes mellitus type: type 2 Qualified Code(s): E11.65 - Type 2 diabetes mellitus with hyperglycemia (8) Headache: Qualifiers: Headache chronicity pattern: acute headache Headache type: post- traumatic Intractability: intractable Qualified Code(s): G44.311 - Acute post- traumatic headache, intractable (9) Hypoalbuminemia: (10) SOB (shortness of breath): (11) Back pain: Qualifiers: Back pain laterality: bilateral Back pain location: back pain in unspecified location Chronicity: acute Qualified Code(s): M54.9 - Dorsalgia, unspecified (12) Lower extremity pain, bilateral: (13) Lower extremity edema: (14) Anemia: Qualifiers: Anemia type: unspecified type Qualified Code(s): D64.9 - Anemia, unspecified (15) Hypocalcemia: (16) Hypoproteinemia: (17) Anxiety: (18) Cardiac murmur: Plan Sodium Chloride 1,000 mls @ 50 mls/hr IV CONT neuro checks per protocol and prn cardiac monitoring Bumetanide 1 mg IVP BID Pantoprazole Sodium 40 mg PO DAILY Magnesium Hydroxide 30 ml PO DAILY PRN Bisacodyl 10 mg [place] DAILY PRN Ketorolac Tromethamine 15 mg IVP Q6H PRN Morphine Sulfate 2 mg IV Q4H PRN Ondansetron Hcl 4 mg INJ Q6H PRN Acetaminophen 1,000 mg in 100 mls @ 400 mls/hr IV Q6H PRN Magnesium Oxide 400 mg PO ONCE - COMPLETE ECHO in the am repeat chest xray in the am PT/OT EVAL Fall Risk Details Alex Fall Scale Risk Level: Moderate Fall Risk Current Medications: Current Medications Bisacodyl (Bisacodyl 10 Mg Supp.Rect) 10 mg [place] DAILY PRN PRN Reason: Constipation Bumetanide (Bumetanide 1 Mg/4 Ml Vial) 1 mg IVP BID [facility] Last Admin: 05/10/24 09:53 Dose: 1 mg Sodium Chloride (Sodium Chloride) 1,000 mls @ 100 mls/hr IV CONT [facility] Last Admin: 05/10/24 13:55 Dose: 100 mls/hr Acetaminophen (Acetaminophen 1000 Mg/100 Ml) 1,000 mg in 100 mls @ 400 mls/hr IV Q6H PRN PRN Reason: MILD PAIN SCALE 1-4 Ketorolac Tromethamine (Ketorolac 30 Mg/Ml Inj Vial) 15 mg IVP Q6H PRN PRN Reason: Moderate Pain SCALE 5-7 Stop: 05/13/24 21:01 Magnesium Hydroxide (Magnesium, Aluminum Hydroxide 30 Ml Oral.Susp) 30 ml PO DAILY PRN PRN Reason: Heartburn Morphine Sulfate (Morphine Sulfate 2 Mg/Ml Cartridge) 2 mg IV Q4H PRN PRN Reason: Severe Pain SCALE 8-10 Ondansetron HCl (Ondansetron Hcl/Pf 4 Mg/2 Ml Vial) 4 mg INJ Q6H PRN PRN Reason: Nausea And Vomiting Pantoprazole Sodium (Pantoprazole Sodium 40 Mg Tablet.Dr) 40 mg PO DAILY [facility] Last Admin: 05/10/24 09:53 Dose: 40 mg Time Spent With Patient Time: Total time spent is greater than 50% in coordination of care (as documented) at patient's floor/unit and/or counseling patient: Time with patient: greater than 35 minutes
[2024-05-10] MEDS ORDERED: TRAMADOL HCL 50 MG TABLET PO PRN (18:06)
[2024-05-10] MEDS: RANOLAZINE 500 MG TAB.ER.12H PO SCH (20:53)
[2024-05-10] MEDS: ATORVASTATIN CALCIUM 10 MG TABLET PO SCH (20:54)
[2024-05-10] MEDS: TAMSULOSIN HCL 0.4 MG CAPSULE PO SCH (20:55)
[2024-05-10] MEDS: GABAPENTIN 300 MG CAPSULE PO SCH (20:55)
[2024-05-10] MEDS: ALPRAZolam 0.5 MG TABLET PO SCH (20:55)
[2024-05-10] MEDS: INSULIN DEGLUDEC SUBQ SCH (20:56)
[2024-05-11 05:54] LABS: Basophils%(Percent) Auto 0.5 (0.0-1.3); Eosinophils#(Absolute)Auto 0.1 (0.0-0.3); Granulocytes % - Auto 64.4 % (49.1-73.1); Granulocytes#(Absolute)- Auto 3.3 (2.0-6.2); Hematocrit 35.7 % (41.3-50.1); Mean Corpuscular Volume 82.6 fl (81.9-96.5); Monocytes #(Absolute)- Auto 0.7 (0.2-0.8); Monocytes %(Percent)- Auto 14.4 % (4.5-10.7); Platelet Count 184 K/uL (142-355); White Blood Count 5.1 K/uL (3.7-9.6)
[2024-05-11 05:58] LABS: Potassium 3.5 mmol/L (3.6-5.2)
[2024-05-11 08:32] VITALS: BP 123/51; PULSE 89; RESP 19; TEMP 97.6
[2024-05-11] MEDS: POTASSIUM CHLORIDE 20 MEQ TAB.ER.PRT PO ONE (10:05)
[2024-05-11] MEDS: DOCUSATE SODIUM 100 MG CAPSULE PO SCH (10:06)
[2024-05-11] MEDS: MAGNESIUM OXIDE 400 MG TABLET PO ONE (10:06)
[2024-05-11] MEDS: ASPIRIN 81 MG TABLET.DR PO SCH (10:06)
[2024-05-11] MEDS: FAMOTIDINE 20 MG TABLET PO SCH (10:07)
[2024-05-11] MEDS: CLOPIDOGREL BISULFATE 75 MG TABLET PO SCH (10:07)
[2024-05-11] MEDS: DONEPEZIL HCL 5 MG TABLET PO SCH (10:07)
[2024-05-11] MEDS: CHOLECALCIFEROL 1,000 UNITS TABLET (25 MCG) PO SCH (10:08)
[2024-05-11] MEDS: ALLOPURINOL 100 MG TABLET PO SCH (10:08)
[2024-05-11] MEDS: MONTELUKAST SODIUM 10 MG TABLET PO SCH (10:08)
[2024-05-11] MEDS: FINASTERIDE 5 MG TABLET PO SCH (10:09)
[2024-05-11] MEDS: SPIRONOLACTONE 50 MG TABLET PO SCH (10:09)
[2024-05-11] MEDS: LORATADINE 10 MG TABLET PO SCH (10:09)
[2024-05-11] MEDS: EMPAGLIFLOZIN 10 MG TABLET PO SCH (10:10)
[2024-05-11] MEDS: EZETIMIBE 10 MG TABLET PO SCH (10:11)
[2024-05-11] MEDS: FUROSEMIDE 40 MG TABLET PO SCH (10:12)
[2024-05-11] MEDS: FESOTERODINE 4 MG PO SCH (10:12)
[2024-05-11] MEDS: [UNRECOGNIZED DRUG - OTHER] PO SCH (10:13)
[2024-05-11] MEDS: [UNRECOGNIZED DRUG - OTHER] SUBQ SCH (10:13)
[2024-05-11] MEDS: INSULIN DEGLUDEC 100 UNIT/ML SUBQ SCH (10:13)
[2024-05-11] MEDS: VIBEGRON 75 MG PO SCH (10:14)
--- NOTE | 2024-05-11 16:34 | Discharge Summary ---
DS: Providers Provider Date of admission: 05/09/24 16:05 Primary care physician: Praveena Limon NP Admitting clinician: Josse Colvin Attending physician on admission: Cathy Rosario Consults: 05/10/24 09:05 Consult to Occupational Therapy Routine Comment: Consulting Provider: Reason for consultation: fall Physician Instructions: evaluate and treat Consult to Physical Therapy Routine Comment: Consulting Provider: Reason for consultation: fall Physician Instructions: evaluate and treat Attending physician on discharge: Cathy Rosario Discharging clinician: Cathy Rosario Anticipated date of discharge: 05/11/24 DS: Diagnosis Discharge Diagnosis (1) CHF (congestive heart failure): Qualifiers: Heart failure chronicity: acute Heart failure type: combined systolic and diastolic Qualified Code(s): I50.41 - Acute combined systolic (congestive) and diastolic (congestive) heart failure (2) Concussion: Qualifiers: Encounter type: initial encounter Loss of consciousness presence/duration: with LOC of 30 min or less Qualified Code(s): S06.0X1A - Concussion with loss of consciousness of 30 minutes or less, initial encounter (3) Nasal bone fx-closed: Qualifiers: Encounter type: initial encounter Qualified Code(s): S02.2XXA - Fracture of nasal bones, initial encounter for closed fracture (4) Fall: Qualifiers: Encounter type: initial encounter Qualified Code(s): W19.XXXA - Unspecified fall, initial encounter (5) Muscle weakness (generalized): (6) [id number] kidney injury: Qualifiers: Acute renal failure type: unspecified Chronic kidney disease stage: unspecified stage Qualified Code(s): N17.9 - Acute kidney failure, unspecified; N18.9 - Chronic kidney disease, unspecified (7) Diabetes: Qualifiers: Diabetes mellitus complication status: with hyperglycemia Diabetes mellitus terminologist insulin use: unspecified shelter insulin use status Diabetes mellitus type: type 2 Qualified Code(s): E11.65 - Type 2 diabetes mellitus with hyperglycemia (8) Headache: Qualifiers: Headache chronicity pattern: acute headache Headache type: post- traumatic Intractability: intractable Qualified Code(s): G44.311 - Acute post- traumatic headache, intractable (9) Hypoalbuminemia: (10) SOB (shortness of breath): (11) Back pain: Qualifiers: Back pain laterality: bilateral Back pain location: back pain in unspecified location Chronicity: acute Qualified Code(s): M54.9 - Dorsalgia, unspecified (12) Lower extremity pain, bilateral: (13) Lower extremity edema: (14) Anemia: Qualifiers: Anemia type: unspecified type Qualified Code(s): D64.9 - Anemia, unspecified (15) Hypocalcemia: (16) Hypoproteinemia: (17) Anxiety: (18) Cardiac murmur: (19) Hypertension: Qualifiers: Hypertension type: primary hypertension Qualified Code(s): I10 - Essential (primary) hypertension (20) Aortic stenosis: Qualifiers: Cardiac valve disease etiology: etiology unspecified Qualified Code(s): I35.0 - Nonrheumatic aortic (valve) stenosis (21) Hypertrophic cardiomyopathy: Plan Discharge home for self care. DS: Summary Hospital Course Hospital Course: 79-year-old male that presented to ER with complaint of bilateral lower leg edema with small wounds, left-sided periorbital laceration is 2 cm's in length, and recent falls has been evaluated by physical exam, CBC, CMP, BNP, troponin, EKG, plain film chest x-ray, CT of the brain without contrast, and CT of the facial bones without contrast results as noted in charting. Patient has been found to have peripheral edema with BNP elevation, Hypoalbuminemia, acute on chronic renal failure, and leg ulceration. [facility] for [facility]ures[facility], albumin infusion, and ongoing assessment of renal function. Day two of hospital stay, patient reports he did not sleep well last night, as he did not have his Xanax as he normally does. Patient had a previous fall with a laceration above left eyebrow and a nasal fracture. Thyroid US performed on 05/09/24 Impression reflects the following: "1: Small right thyroid nodule, 2: No suspicious findings." Lab work reflects the following: elevated BUN & Creatinine, hypocalcemia 7.8, hypomagnesemia 1.6, elevated BN-Peptide 452.0, hypoproteinemia 5.9, and hypoalbuminemia 2.8. Physical Therapy and Occupational Therapy to evaluate and treat as needed. Day three of hospital stay, patient has improved and ready to discharge home for self care. Echocardiogram results reflect: Aorta Stenosis, Hypertrophic Cardiomyopathy, and EF of 40%. Provider encourages patient to keep upcoming appointment with er registrar on 05/24/24. Murmur was noted, however, not as prominent today as yesterday. Follow up with PCP Praveena Limon NP in 5-7 days of discharge. Status at Discharge Functional status at discharge: independent ambulation Overall status at discharge: patient is back to baseline Time Spent with Patient Time attestation: Total time spent providing and/or coordinating discharge services: Exam Exam: Patient standing at sink bathing himself at time of exam. Constitutional: abnormal general appearance (chronically ill), no apparent distress, abnormal body habitus (overweight), limitations noted (physical limitations) (Patient is weak and has frequent falls) and alert Vital Signs - 24 hr 05/10/24 16:00 05/10/24 19:53 05/10/24 20:53 Temperature 98.7 F 98.8 F Pulse Rate [Left] 87 90 Respiratory Rate 19 19 Blood Pressure 115/65 Blood Pressure [Le ft Arm] 120/61 115/65 Pulse Oximetry 95 96 Oxygen Delivery Me thod Room Air Room Air 05/10/24 20:53 05/10/24 23:54 05/10/24 23:55 Temperature 98.3 F Pulse Rate [Left] 81 Respiratory Rate 17 Blood Pressure 115/65 111/51 Blood Pressure [Le ft Arm] 111/51 Pulse Oximetry 95 Oxygen Delivery Me thod Room Air 05/11/24 04:00 05/11/24 08:00 Temperature 97.9 F 97.6 F Pulse Rate [Left] 87 89 Respiratory Rate 18 19 Blood Pressure Blood Pressure [Le ft Arm] 108/73 123/51 Pulse Oximetry 96 96 Oxygen Delivery Me thod Room Air Room Air HENMT: normocephalic, head/scalp traumatic (Patient has a proximately 2 cm laceration to the left eyebrow that has seal) (tenderness), (contusion) and (laceration), hearing grossly normal bilaterally, external ears normal, EACs normal, TMs normal bilaterally, nasal mucous membranes normal, external nose normal, oral mucous membranes normal, oropharynx normal, dentition normal and gingiva normal Patient has a 2 cm laceration to left eyebrow area that has sealed on its own and is not able to be sutured at this time, There is no noted deformity of the nasal area; however, there is noted tenderness on palpation. Eyes: PERRL, EOMs intact bilaterally, conjunctivae normal, no scleral icterus, no papilledema, normal visual drew by confrontation, fundi normal bilaterally, alignment normal, periorbital findings normal, visual acuity normal and no nystagmus Neck/C-Spine: visual inspection normal, trachea midline, cervical spine nontender, cervical full ROM noted, supple, no meningeal signs, thyroid normal and no carotid bruits Lymph: no lymphadenopathy noted and no lymphedema noted Chest: inspection of chest normal, palpation of chest normal, inspection of breast(s) abnormal and palpation of breast(s) abnormal Respiratory: breath sounds equal bilaterally, normal respiratory effort, clear to auscultation bilaterally, no wheezes, no rales, no retractions, no use of accessory muscles and chest percussion normal Cardiovascular: normal heart rate noted, regular rhythm noted, no gallop, no rub, no murmur, no JVD, no clicks, peripheral pulses 2+ throughout, no bruits noted and no additional abnormal heart sounds Gastrointestinal: abdomen normal to inspection, abdomen soft to palpation, nontender to palpation, nontender to percussion, nondistended, normoactive bowel sounds, no hepatosplenomegaly, no masses, no pulsatile mass, no ascites, no hernia and normal rectal exam (deferred) Genitourinary: no CVA tenderness, bladder normal to palpation, external appearance normal, penis normal, uncircumcised, testes normal, meatus abnormal (deferred), scrotum normal (deferred) and no inguinal lymphadenopathy Back/Pelvis: spine normal to inspection, no thoracic spine tenderness, no lumbar spine tenderness, thoracic spine ROM normal, lumbar spine ROM normal, no paraspinal muscle tenderness noted and straight leg raise negative bilaterally Extremities: normal to inspection, normal to palpation, tenderness noted, full ROM, no joint enlargement and no deformity Patient has several noted skin tear open areas that are reported to be draining fluid on bilateral lower extremities. Similar wounds previously had to have wound care. Neurology: dentist attendant II-XII intact, no movement abnormality noted, no focal motor deficit noted, sensory deficit noted, deep tendon reflexes 2+ bilaterally, gait abnormality noted (unable to access), speech normal, coordination abnormality noted, no pronator drift noted, no fasciculations noted and GCS normal Psychiatry: Mental Status Exam documented within this Exam's Psych section mental status grossly normal, oriented x3, thought process abnormality noted, cooperative, affect normal, psychomotor abnormality noted (restless) and memory normal Patient is alert and oriented to his normal state, family reports patient has had several falls related to unsteady gait and weakness. Skin: skin color normal, no rash, no lesions, no ecchymosis noted, no wounds, no lacerations, skin turgor abnormal Reports (tenting), no jaundice, no petechiae, no mottling, nails normal and no alopecia DS: Data Data Completed and Pending Labs on day of discharge: Labs from last 24 hours 05/11/24 05:00 WBC 5.1 RBC 4.3 L Hgb 11.4 L Hct 35.7 L MCV 82.6 MCH 26.4 L MCHC 31.9 L RDW 17.2 H Plt Count 184 MPV 8.2 Gran % 64.4 Lymph % (Auto) 18.7 Metcalfe % (Auto) 14.4 H Eos % (Auto) 2.0 Baso % (Auto) 0.5 Lymph # (Auto) 1.0 Metcalfe # (Auto) 0.7 Eos # (Auto) 0.1 Baso # (Auto) 0.0 Absolute Gran (auto) 3.3 Sodium 143 Potassium 3.5 L Chloride 106.0 Carbon Dioxide 33 H Anion Gap 4.0 BUN 31 H Creatinine 1.6 H Estimated GFR 43.0 Glucose 139 H Calcium 8.1 L Phosphorus 3.6 Magnesium 1.6 L Total Bilirubin 0.98 AST 24 ALT 26 L Alkaline Phosphatase 92 B-Natriuretic Peptide 632.0 H Total Protein 5.8 L Albumin 2.7 L Imaging Thyroid Ultrasound: Radiologist's impression: US THYROID Date of Service: 05/09/24 HISTORY: elevated tshelevated tsh; COMPARISON: Chest CT 10/24/2023 TECHNIQUE: 54 images made by the test specialist. Mcgraw scale and color-flow images of the thyroid were obtained. FINDINGS: Right lobe of the thyroid measures 57 x 16 x 19 mm. Left lobe of the thyroid measures 58 x 17 x 22 mm. Isthmus measures 4 mm. Thyroid volume is about 20 mL. The thyroid is normal in size. Upper limit normal volume for men is 9-25 mL. The contour is smooth. Normal blood flow is demonstrated by color imaging. The echogenicity is uniform. 1 small nodule measures about 3 mm in the right lobe. This does not meet size criteria for further evaluation. The technologist did not report any suspicious surrounding lymphadenopathy. IMPRESSION: 1. Small right thyroid nodule 2. No suspicious findings Face CT: Radiologist's impression: CT FACIAL BONES WO CON Date of Service: 05/09/24 HISTORY: fallfall; . COMPARISON STUDY: CT brain 09/04/2022 05/09/2024. TECHNIQUE: Multiple thin section axial images were obtained through the facial bones without IV administration of contrast. Coronal reformatted images were obtained. The above CT scan was done with automated exposure control and the mA and kV was adjusted to obtain quality images according to patient size. FINDINGS: Nondisplaced nondepressed fracture of the right nasal bone.. Sinuses demon strate chronic right maxillary sinusitis.. Orbits are intact. Surroundings soft tissues are unremarkable. Globes and retroorbital structures are intact. Zygomas, TMJs and mandible are intact. No osteolytic or osteoblastic lesions are noted. 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 This is previously described as 2 separate lesions. Differential diagnosis would include lymphoma, sarcoid, pseudotumor or neurogenic tumors. Consider ophthalmology evaluation. Globes and retro-orbital structures are otherwise intact. There is adjacent calcification. Karla bullosa within the middle turbinates bilaterally. IMPRESSION: Nondisplaced nondepressed posttraumatic closed fracture of the right nasal bone. Excessive motion and streak artifact. 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 Differential diagnosis would include lymphoma, sarcoid, orbital pseudotumor or neurogenic tumors. Consider ophthalmologic evaluation.. CT scan - head: Radiologist's impression: CT head without contrast Date of Service: 05/09/24 HISTORY: Fall, head injury TECHNIQUE: Axial noncontrast images with coronal and sagittal reformats. Dose reduction procedures were used with mA/kv adjusted for body size. COMPARISON: 11/02/2023 FINDINGS: The ventricles are normal in size shape and position. There is mild cortical atrophy present likely age related. There are no focal areas of abnormal attenuation to suggest recent or remote CVA, hemorrhage, contusion, mass lesion, or extra-axial fluid collection. Visualized sinuses are clear. The calvarium is intact. Redemonstrated are multiple partially calcified soft tissue masses within the right orbit demonstrating some mass effect on the extraocular musculature and optic nerve and contributing to proptosis. These findings were present on prior examinations 09/05/2023 and 11/02/2023 and do not appear to have significantly progressed. Recommend careful historical correlation and MRI of the orbits and ophthalmological consultation if not previously obtained. IMPRESSION: No acute intracranial abnormality identified Mild cortical atrophy likely age-related Multiple abnormal and some partially calcified right retro-orbital soft tissue masses contributing to mild proptosis. By history this has been present since 2017. Close historical correlation is recommended. If this finding has not been evaluated, MRI with and without contrast would be of further diagnostic value as would ophthalmology consultation. Chest x-ray: Radiologist's impression: XR CHEST 1V Date of Service: 05/09/24 HISTORY: dyspneadyspnea; COMPARISON: March 07, 2022 FINDINGS: The trachea is midline. The cardiac silhouette is mildly enlarged. The lungs are clear without focal infiltrate or effusion. The bony thorax is unremarkable. IMPRESSION: No acute cardiopulmonary disease. Discharge Plan Discharge Disposition: Home, Self-Care Condition: Improved Discharge Medications: Continued allopurinol 300 mg tablet 300 mg PO DAILY alprazolam 0.5 mg tablet 0.5 mg PO BID Patient Comments: TAKE ONE TABLET BY MOUTH TWICE DAILY PATIENT STATES THAT HE TAKES TWO AT BEDTIME ONLY atorvastatin 20 mg tablet 20 mg PO BEDTIME Patient Comments: TAKE ONE TABLET BY MOUTH AT BEDTIME docusate sodium 100 mg capsule 200 mg PO DAILY Patient Comments: TAKE TWO CAPSULES BY MOUTH DAILY donepezil 10 mg tablet 10 mg PO DAILY clopidogrel 75 mg tablet 75 mg PO DAILY Patient Comments: TAKE ONE TABLET BY MOUTH DAILY Jardiance 10 mg tablet 10 mg PO DAILY Patient Comments: TAKE ONE TABLET BY MOUTH DAILY ezetimibe 10 mg tablet 10 mg PO DAILY Patient Comments: TAKE ONE TABLET BY MOUTH DAILY famotidine 40 mg tablet 40 mg PO DAILY Patient Comments: TAKE ONE TABLET BY MOUTH DAILY fesoterodine 4 mg tablet extended release 24 hr 2 mg PO DAILY Patient Comments: TAKE 1/2 TABLET BY MOUTH DAILY finasteride 5 mg tablet 5 mg PO DAILY Patient Comments: TAKE ONE TABLET BY MOUTH DAILY furosemide 40 mg tablet 40 mg PO DAILY Patient Comments: TAKE ONE TABLET BY MOUTH DAILY gabapentin 300 mg capsule 600 mg PO BEDTIME Patient Comments: TAKE TWO CAPSULES BY MOUTH AT BEDTIME insulin degludec [Tresiba FlexTouch U-100] 100 unit/mL (3 mL) insulin pen See Rx Instructions SUBCUT .COMPLEX Rx Instructions: INJECT 16 UNITS EVERY MORNING AND 12 UNITS EVERY EVENING subcutaneously; loratadine 10 mg tablet 10 mg PO DAILY Patient Comments: TAKE ONE TABLET BY MOUTH DAILY methocarbamol 500 mg tablet 500 mg PO TID PRN (Reason: muscle spasm) Patient Comments: TAKE ONE TABLET BY MOUTH THREE TIMES DAILY NEEDED FOR MUSCLE SPASMS montelukast 10 mg tablet 10 mg PO DAILY Patient Comments: TAKE ONE TABLET BY MOUTH DAILY ranolazine 500 mg tablet extended release 12 hr 500 mg PO BID Patient Comments: TAKE ONE TABLET BY MOUTH TWICE DAILY spironolactone 25 mg tablet 12.5 mg PO DAILY Patient Comments: TAKE 1/2 TABLET BY MOUTH DAILY tamsulosin 0.4 mg capsule 0.4 mg PO BID Patient Comments: TAKE ONE CAPSULE BY MOUTH TWICE DAILY tramadol 50 mg tablet 50 mg PO Q8H PRN (Reason: pain) Patient Comments: TAKE 1 TO 2 TABLETS BY MOUTH EVERY 8 HOURS NEEDED FOR PAIN PATIENT STILL HAS THIS IN HIS BAG AND MAY STILL USE IT ON OCCASSION Gemtesa 75 mg tablet 75 mg PO DAILY Patient Comments: TAKE ONE TABLET BY MOUTH DAILY aspirin 81 mg tablet,delayed release (DR/EC) 81 mg PO DAILY NEUGENIX 1 cap PO DAILY cholecalciferol (vitamin D3) 50 mcg (2,000 unit) capsule 50 mcg PO DAILY Discharge Orders: Discharge Order (Routine); Ordered 05/11/24 Ordered By: Cathy Rosario Activity: as per physical therapy Diet: diabetic diet, low fat, low cholesterol and other Diet Detail: 1500 fluid restriction until follow up with Dr Galo on Interventions: Discharge Assessment Last Done: 05/11/24 11:58 MED/SURG & ICU Observation Charge Sheet Last Done: 05/10/24 23:56 Patient Instructions: Heart Failure (DC), Fluid Restriction (DC) Activity Restrictions/Additional Instructions: fluid restriction 1500 cc daily and daily weights if up or down 5 pounds let PCP know for further directions follow up Dr Galo as scheduled on the for monitor and the following week for results nephrology follow up PCP follow up 5-7 days and prn monitor home for safety and tripping hazards and consider use of cane or walker to help with fall prevention Forms: Portal/Health Info Access Inst Follow-Ups: Chelo Moody MD [Referring] - 05/24/24 11:00 am (SCHEDULED ON 05/24/2024 FOR HOLTER MONITOR HAS FOLLOW-UP APPT. WITH M[facility]RIS ON 06/07/2024 @ 11:00 ) Praveena Limon PORTFOLIO ARCHITECT [Primary Care Provider] - 05/25/24 11:10 am Discharge Date/Time: 05/11/24 13:00
== END 2024-05-11 13:00 | disposition home or self-care (01) ==
LOC: ED 10:31 → MS 10:31
PROVIDERS: ADMIT Family Medicine; ATTEND Family Medicine